=== PATIENT | male | born 1955 | race Caucasian/White ===

== ENCOUNTER → 2024-08-27 | Day surgery (SDC) | payer OTHER, MEDICARE ==
[2024-08-21 13:55] VITALS: BMI 25.3
[~2024-08-27] MED LIST: BSS (NA/CA/MG/K) BALANCED SALT SOLUTION OPHTH SOLN 15 ML BOTTLE ONE; CARBACHOL 0.01% INTRA-OCULAR 1.5 ML VIAL ONE; CIPROFLOXACIN 0.3% EYE DROPS 5 ML BOTTLE ONE; CYCLOPENTOLATE 2% OPHTH SOLN 2 ML BOTTLE ONE; LIDOCAINE 1% P/F 10 MG/ML VIAL ONE; MIDAZOLAM HCL 2 MG/2 ML SINGLE DOSE VIAL ONE; NEO/POLYMYX B SULF/DEXAMETH OPHTHALMIC 5ML BOTTLE ONE; PHENYLEPHRINE 2.5% OPTHALMIC DROP 2ML BOTTLE ONE; TETRACAINE 0.5% OPHTH SOLN 2 ML BOTTLE ONE; TROPICAMIDE 1% 3 ML EYE DROPS ONE
[2024-08-27 11:12] VITALS: RESP 16
[2024-08-27 12:43] VITALS: PULSE 60
[2024-08-27 13:08] VITALS: BP 134/70; TEMP 97.5
== END | disposition home or self-care (01) ==
LOC: FASU 09:47
PROVIDERS: ATTEND Ophthalmology
PROC: 08RJ3JZ Replacement of Right Lens with Synthetic Substitute, Percutaneous Approach (ICD-10-PCS; principal; 2024-08-27 12:17)
DX: H26.8 Other specified cataract (principal)
CPT/HCPCS: 66984; V2632